=== PATIENT | male | born 1975 | race Caucasian/White ===

== ENCOUNTER → 2020-10-16 09:57 | Outpatient (BNVA) | payer OTHER, SELFPAY | PROVIDERS: Referring Provider Family Medicine; Visit Provider Podiatrist Foot & Ankle Surgery | DX: M77.8 Other enthesopathies, not elsewhere classified (principal); M79.671 Pain in right foot | CPT/HCPCS: 73630 ==

== ENCOUNTER 2020-10-23 06:00 | Outpatient (RCR) | payer OTHER, SELFPAY | END 2020-10-26 23:59 | disposition home or self-care (01) | LOC: MPT 06:00 | PROVIDERS: PCP Family Medicine; Referring Provider Podiatrist Foot & Ankle Surgery; Visit Provider Podiatrist Foot & Ankle Surgery | DX: M76.61 Achilles tendinitis, right leg (principal); M21.541 Acquired clubfoot, right foot | CPT/HCPCS: 97140; 97161 ==

== ENCOUNTER → 2025-05-04 10:19 | Outpatient (BNVA) | payer OTHER, SELFPAY | PROVIDERS: PCP Family Medicine; Visit Provider Nurse Practitioner Family | DX: S20.369A Insect bite (nonvenomous) of unspecified front wall of thorax, initial encounter (principal); L30.8 Other specified dermatitis; L57.8 Other skin changes due to chronic exposure to nonionizing radiation; L57.0 Actinic keratosis; X58.XXXA Exposure to other specified factors, initial encounter | CPT/HCPCS: 17000; 99204 ==